=== PATIENT | male | born 1995 ===

== ENCOUNTER 2022-04-04 10:16 | Emergency (ER) | payer SELFPAY | END 2022-04-04 11:14 | disposition left against medical advice (07) | LOC: ED 10:16 | DX: A64 Unspecified sexually transmitted disease (principal); Z53.21 Procedure and treatment not carried out due to patient leaving prior to being seen by health care provider ==

== ENCOUNTER 2022-04-16 15:36 | Emergency (ER) | payer SELFPAY | END 2022-04-17 08:07 | disposition left against medical advice (07) | LOC: ED 15:36 | DX: M54.2 Cervicalgia (principal); Z53.21 Procedure and treatment not carried out due to patient leaving prior to being seen by health care provider; W18.39XA Other fall on same level, initial encounter; Y93.89 Activity, other specified; Y92.89 Other specified places as the place of occurrence of the external cause; Y99.8 Other external cause status ==